=== PATIENT | male | born 1955 ===

== ENCOUNTER 2017-03-07 18:21 | Emergency (ER) | payer SELFPAY ==
[2017-03-07 18:21] VITALS: BMI 26.8
[2017-03-07 18:44] VITALS: RESP 20; O2SAT 100
[2017-03-07] MEDS ORDERED: Naproxen 550 mg Tab PO STA (20:08)
[2017-03-07] MEDS ORDERED: Naproxen 550 mg Tab PO ONE (20:20)
--- NOTE | 2017-03-07 20:42 | C.PDOC ---
History Of Present Illness 61yo male presents to the ED for evaluation of 2 weeks of right foot pain radiating to his right leg and right buttock area. He denies any trauma, injuries, numbness, bowel or bladder dysfunction. He also denies any back pain. Patient reports taking Motrin with relief. He states he had similar symptoms in his left calf 6 months ago which spontaneously resolved. Patient also states he had a medical check up with his PMD 6 months ago which was all normal. He denies any fever, chill, nausea, vomiting, abdominal pain. He offers no other medical complaints. Time Seen by Provider: 03/07/17 19:24 Chief Complaint (Nursing): Lower Extremity Problem/Injury History Per: Patient History/Exam Limitations: no limitations Onset/Duration Of Symptoms: Days, Persistent Current Symptoms Are (Timing): Still Present Past Medical History Reviewed: Historical Data, Nursing Documentation, Vital Signs Vital Signs: Last Vital Signs Temp 98 F 03/07/17 22:25 Pulse 78 03/07/17 22:25 Resp 20 03/07/17 22:25 BP 130/70 03/07/17 22:25 Pulse Ox 100 03/07/17 22:25 - Medical History PMH: No Chronic Diseases Surgical History: No Surg Hx Family History: States: Unknown Family Hx - Social History Hx Tobacco Use: No Hx Alcohol Use: No Hx Substance Use: No - Immunization History Hx Tetanus Toxoid Vaccination: Yes Hx Influenza Vaccination: Yes Hx Pneumococcal Vaccination: No Review Of Systems Except As Marked, All Systems Reviewed And Found Negative. Constitutional: Negative for: Fever, Chills Cardiovascular: Negative for: Chest Pain, Palpitations, Orthopnea Respiratory: Negative for: Cough, Shortness of Breath Gastrointestinal: Negative for: Nausea, Vomiting, Abdominal Pain Musculoskeletal: Positive for: Leg Pain (right), Foot Pain (right). Negative for: Neck Pain, Shoulder Pain, Back Pain Skin: Negative for: Rash, Lesions Neurological: Negative for: Weakness, Numbness, Incoordination Physical Exam - Physical Exam Appears: Well, Non-toxic, No Acute Distress Skin: Normal Color, Warm, Dry Head: Atraumatic, Normacephalic Eye(s): bilateral: PERRL, EOMI Ear(s): Bilateral: Normal Neck: Normal, Normal ROM, Supple Chest: No Deformity, No Tenderness Cardiovascular: Rhythm Regular Respiratory: Normal Breath Sounds Gastrointestinal/Abdominal: Normal Exam, Soft, No Tenderness Back: No Normal Inspection, No CVA Tenderness, No Vertebral Tenderness, No Paraspinal Tenderness Extremity: Normal ROM, No Tenderness, No Pedal Edema, Capillary Refill (< 2 seconds), No Deformity, No Swelling Neurological/Psych: Oriented x3, Normal Speech, Normal Cognition, Normal Cranial Nerves, Normal Motor, Normal Sensation, Other (walks with a normal gait) ED Course And Treatment O2 Sat by Pulse Oximetry: 100 (RA) Pulse Ox Interpretation: Normal Medical Decision Making Medical Decision Making: Impression: 61yo male w/ right lower extremity pain, consider sciatica vs claudication vs neuropathy Plan: -- XR right hip -- XR right femur -- XR right foot -- XR right knee XR R hip / pelvis: (-) fracture, (-) dislocation, as read by PA. XR R femur: (-) fracture, (-) dislocation, as read by PA. XR R knee: (-) fracture, (-) dislocation, as read by PA. XR R foot: (-) fracture, (-) dislocation, as read by PA. XR results d/w the patient in great detail. Advised of the need for ortho f/u without fail in the next 2-3 days for further evaluation. Advised to take medication as prescribed. Disposition Counseled Patient/Family Regarding: Studies Performed, Diagnosis, Need For Followup, Rx Given - Disposition Referrals: Oralia Lund MD [Staff Provider] - Disposition: HOME/ ROUTINE Disposition Time: 22:00 Condition: STABLE Additional Instructions: Follow up with orthopedic referral provided in 2 days without fail. Take medication as prescribed. Return to the ER at any time for any new or worsening symptoms. 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 - Scribe Statement The provider has reviewed the documentation as recorded by the Monty Jones Provider Attestation: All medical record entries made by the Monty were at my direction and personally dictated by me. I have reviewed the chart and agree that the record accurately reflects my personal performance of the history, physical exam, medical decision making, and the department course for this patient. I have also personally directed, reviewed, and agree with the discharge instructions and disposition.
[2017-03-07 22:26] VITALS: BP 130/70; PULSE 78; TEMP 98
--- NOTE | 2017-03-08 15:37 | RAD ---
Right knee three views History: Pain. Comparison: None available. Findings: Mild medial and patellofemoral compartment joint space narrowing. No evidence of acute displaced fracture or dislocation. Small suprapatellar joint effusion. If pain persists, consider MRI. Impression: Mild medial and patellofemoral compartment joint space narrowing. No evidence of acute displaced fracture or dislocation. Small suprapatellar joint effusion. If pain persists, consider MRI.
--- NOTE | 2017-03-08 15:46 | RAD ---
Left knee three views History: Pain. Comparison: None available. Findings: Mild medial compartment joint space narrowing. Small suprapatellar joint effusion. No evidence of acute displaced fracture or dislocation. Impression: Small suprapatellar joint effusion. Degenerative changes. If pain persists, consider MRI.
--- NOTE | 2017-03-08 15:49 | RAD ---
Left foot three views History: Pain. Comparison: None available. Findings: Moderate hallux valgus deformity. Small ossific density seen medial to the head of the 1st metatarsal bone which may represent accessory ossicle versus small avulsion injury. Clinical correlation to site of pain. Clinical correlation. Peripheral erosion at the 1st metatarsal head. Small bone island in the mid calcaneus. Narrowing of the tibiotalar joint space. Impression: Moderate hallux valgus deformity. Small ossific density seen medial to the head of the 1st metatarsal bone which may represent accessory ossicle versus small avulsion injury. Clinical correlation to site of pain. Clinical correlation. Peripheral erosion at the 1st metatarsal head. Small bone island in the mid calcaneus. Narrowing of the tibiotalar joint space. If pain persists, consider MRI.
--- NOTE | 2017-03-08 16:06 | RAD ---
Pelvis and right hip two views History: Injury. Comparison: None available. Findings: Right hip: Moderate degenerative changes with joint space narrowing and subchondral sclerosis. No evidence for acute displaced fracture or dislocation. Degenerative changes in the lower lumbar spine with paravertebral osteophytes. Left hip: Moderate degenerative changes in the left hip with joint space narrowing and associated osteophytosis. Osteitis pubis. Impression: Degenerative changes. If pain persists, consider MRI.
--- NOTE | 2017-03-08 16:20 | RAD ---
PROCEDURE: Right Foot Radiographs. HISTORY: Pain COMPARISON: None. FINDINGS: BONES: There is no acute displaced fracture or bone destruction. Bone alignment and mineralization are normal. JOINTS: Normal. SOFT TISSUES: Normal. OTHER FINDINGS: None. IMPRESSION: No acute fracture or dislocation.
--- NOTE | 2017-03-08 16:22 | RAD ---
PROCEDURE: Right Femur Radiographs. HISTORY: Pain COMPARISON: None. TECHNIQUE: AP and Lateral Radiographs of the right femur. FINDINGS: FEMUR: There is no acute displaced fracture or bone destruction. Bone alignment and mineralization are normal. SOFT TISSUES: Normal. OTHER FINDINGS: None. IMPRESSION: No acute fracture or bone destruction.
== END 2017-03-07 22:26 | disposition home or self-care (01) ==
LOC: C.ER 18:21
DX: M79.604 Pain in right leg (principal)

== ENCOUNTER 2017-12-06 10:20 | Observation (INO) | payer MEDICAID, OTHER, SELFPAY ==
[2017-12-06 10:21] VITALS: BMI 26.8
--- NOTE | 2017-12-06 11:00 | C.PDOC ---
History Of Present Illness 62-year-old male presents to the ER with complaints of intermittent dizziness for the past 3 months. He describes dizziness as the room spinning around him. Also in the last week patient reports having 3 episodes of left upper extremity weakness, most recently today around 9am. Otherwise patient denies any chest pain, SOB, visual changes, facial droop, slurred speech, sensory changes, headache, or palpitations. Time Seen by Provider: 12/06/17 10:41 Chief Complaint (Nursing): Dizziness/Lightheaded History Per: Patient History/Exam Limitations: no limitations Onset/Duration Of Symptoms: Intermittent Episodes Current Symptoms Are (Timing): Still Present Past Medical History Reviewed: Historical Data, Nursing Documentation, Vital Signs Vital Signs: Last Vital Signs Temp 98.9 F 12/06/17 10:33 Pulse 90 12/06/17 10:33 Resp 18 12/06/17 10:33 BP 135/76 12/06/17 10:33 Pulse Ox 98 12/06/17 12:35 - Medical History PMH: No Chronic Diseases Surgical History: No Surg Hx Family History: States: Unknown Family Hx - Social History Hx Tobacco Use: No Hx Alcohol Use: No Hx Substance Use: No - Immunization History Hx Tetanus Toxoid Vaccination: Yes Hx Influenza Vaccination: Yes Hx Pneumococcal Vaccination: No Review Of Systems Except As Marked, All Systems Reviewed And Found Negative. Eyes: Negative for: Vision Change Cardiovascular: Negative for: Chest Pain, Palpitations Respiratory: Negative for: Shortness of Breath Neurological: Positive for: Weakness (LUE), Dizziness. Negative for: Numbness, Change in Speech, Headache, Other (facial droop) Physical Exam - Physical Exam Appears: Non-toxic, No Acute Distress, Other (Appears comfortable) Skin: Normal Color, Warm, Dry Head: Atraumatic, Normacephalic Eye(s): bilateral: Normal Inspection (with no nystagmus), PERRL, EOMI Nose: Normal Oral Mucosa: Moist Neck: Normal ROM, Supple Chest: Symmetrical, No Deformity Cardiovascular: Rhythm Regular, No Murmur Respiratory: Normal Breath Sounds, No Rales, No Rhonchi, No Wheezing Gastrointestinal/Abdominal: Soft, No Tenderness Back: Normal Inspection Extremity: Bilateral: Atraumatic, Normal Color And Temperature, Normal ROM Pulses: Left Radial: Normal, Right Radial: Normal Neurological/Psych: Oriented x3, Normal Speech, Normal Cranial Nerves (CN 2-12 intact), Normal Motor (5/5 motor strength of all extremities), Normal Sensation , Other (No focal deficits) Gait: Steady ED Course And Treatment - Laboratory Results Result Diagrams: 12/06/17 11:14 12/06/17 11:14 ECG: Interpreted By Me, Viewed By Me ECG Rhythm: Sinus Rhythm Interpretation Of ECG: left axis deviation, no acute ST/T wave changes Rate From EC O2 Sat by Pulse Oximetry: 98 (RA) Pulse Ox Interpretation: Normal - CT Scan/US CT HEAD Other Rad Studies (CT/US): Read By Radiologist, Radiology Report Reviewed CT/US Interpretation: Accession No. : [id number]. Patient Name / ID : LENI BOOTH / [id number]. Exam Date : 12/06/2017 11:42:52 ( Approved ). Study Comment : Sex / Age : M / 62Y. Creator : Milena Bruce. Dictator : Latha Goldberg MD. Shelter Monitor : Finance Advisor : Latha Goldberg MD. Approver2 : Report Date : 12/06/2017 11:57:45. My Comment : . Date of service: 12/06/2017. PROCEDURE: CT HEAD WITHOUT CONTRAST. HISTORY: Dizziness and left arm weakness. COMPARISON: None available. TECHNIQUE: Axial computed tomography images were obtained through the head/brain without intravenous contrast. Radiation dose: Total exam DLP = 1077.95 mGy-cm. This CT exam was performed using one or more of the following dose reduction techniques: Automated exposure control, adjustment of the mA and/or kV according to patient size, and/or use of iterative reconstruction technique. FINDINGS: HEMORRHAGE: No intracranial hemorrhage. BRAIN: Freitas-white matter differentiation is preserved. There is no mass, mass effect or abnormal extra- axial fluid collection. There is no territorial infarction. The midline sagittal structures are normal. VENTRICLES: The ventricles are normal in size , shape and configuration. CALVARIUM: The skull base and calvarium are normal. PARANASAL SINUSES: Predominantly clear. MASTOID AIR CELLS: Predominantly clear. OTHER FINDINGS: None. IMPRESSION: No acute intracranial abnormality. If there is a persistent focal neurologic deficit and an ongoing clinical concern for acute infarction, an MRI of the brain without intravenous contrast would be a more sensitive modality for evaluation of hyperacute/acute ischemic infarction. Progress Note: Labs and CT Head ordered. Patient started on IV fluids. NIHSS Stroke Scale 2 - Date/Time Evaluation Performed Date Performed: 12/06/17 Time Performed: 10:35 When Was NIHSS Performed: Baseline - How Severe is the Stroke Level of Consciousness: 0=Alert LOC to Questions: 0=Both comments correct LOC to commands: 0=Obeys both correctly Best Gaze: 0=Normal Visual: 0=No visual loss Facial: 0=Normal Motor Arm - Left: 0=No drift Motor Arm - Right: 0=No drift Motor Leg - Left: 0=No drift Motor Leg - Right: 0=No drift Limb Ataxia: 0=Absent Sensory: 0=Normal Best Language: 0=No aphasia Dysarthia: 0=Normal articulation Extinction & Inattention (Neglect): 0=Normal, no object Score: 0 Severity Of Stroke: 0 = No Stroke rTPA Inclusion/Exclusion - Refusal of Treatment Patient Refused Treatment: No - Inclusion Criteria for Altepase Patient is 18 years or Older: Yes The Clinical Diagnosis of Ischemic Stroke That is Causing a Potentially Disabling Neurological Deficit: No Time of Onset is Well Established to be Less Than 270 Minute Before Treatment Would Begin: Yes Risk/Benefit Discussed With Patient/Family Member Present: No Disposition - Disposition Forms: [employer] (Azeri) - Scribe Statement The provider has reviewed the documentation as recorded by the Monty Ocasio Provider Attestation: All medical record entries made by the Monty were at my direction and personally dictated by me. I have reviewed the chart and agree that the record accurately reflects my personal performance of the history, physical exam, medical decision making, and the department course for this patient. I have also personally directed, reviewed, and agree with the discharge instructions and disposition.
[2017-12-06] MEDS ORDERED: Sodium Chloride 0.9% 500 ML IV ONE ×2 (11:10→11:42)
[2017-12-06 11:19] LABS: BASO % 0.6 % (0.0-2.0); EOS % 0.8 % (0.0-4.0); LYMPH % 33.2 % (20.0-40.0); MEAN CELL VOLUME 90.9 fL (80.0-94.0); MEAN CORPUSCULAR HEMOGLOBIN 30.5 pg (27.0-31.0); MEAN CORPUSCULAR HGB CONC 33.6 g/dL (33.0-37.0); MEAN PLATELET VOLUME 8.9 fL (7.2-11.7); MONO # 0.5 K/uL (0.0-0.8); MONO % 7.9 % (0.0-10.0); NEUT # 3.5 K/uL (1.8-7.0); NEUT % 57.5 % (50.0-75.0); NRBC % 0.1 % (0.0-2.0); RBC 4.91 Mil/uL (4.40-5.90); RED CELL DISTRIBUTION WIDTH 12.7 % (11.5-14.5); WHITE BLOOD COUNT 6.1 K/uL (4.8-10.8)
[2017-12-06 11:24] LABS: PROTHROMBIN TIME 11.1 SECONDS (9.7-12.2)
[2017-12-06 11:29] LABS: ALB/GLOB RATIO 1.4 (1.0-2.1); ALBUMIN 4.2 g/dL (3.5-5.0); ALT/SGPT 42 U/L (21-72); AST/SGOT 20 U/L (17-59); BLOOD UREA NITROGEN 14 mg/dL (9-20); CALCIUM 9.4 mg/dl (8.6-10.4); GFR AFRICAN-AMERICAN > 60; GFR NON-AFRICAN AMERICAN > 60
[2017-12-06 11:40] LABS: URINE BILIRUBIN NEGATIVE (NEGATIVE); URINE BLOOD NEGATIVE (NEGATIVE); URINE CLARITY Clear (Clear); URINE COLOR Colorless (YELLOW); URINE GLUCOSE (UA) NORMAL (Normal); URINE LEUKOCYTE ESTERASE NEG Leu/uL (Negative); URINE PROTEIN NEGATIVE (NEGATIVE); URINE UROBILINOGEN NORMAL mg/dL (0.2-1.0)
[2017-12-06 11:41] LABS: CK-MB 8.39 ng/mL (0.0-3.38)
--- NOTE | 2017-12-06 12:17 | CT ---
Date of service: 12/06/2017 PROCEDURE: CT HEAD WITHOUT CONTRAST. HISTORY: Dizziness and left arm weakness COMPARISON: None available. TECHNIQUE: Axial computed tomography images were obtained through the head/brain without intravenous contrast. Radiation dose: Total exam DLP = 1077.95 mGy-cm. This CT exam was performed using one or more of the following dose reduction techniques: Automated exposure control, adjustment of the mA and/or kV according to patient size, and/or use of iterative reconstruction technique. FINDINGS: HEMORRHAGE: No intracranial hemorrhage. BRAIN: Freitas-white matter differentiation is preserved. There is no mass, mass effect or abnormal extra-axial fluid collection. There is no territorial infarction. The midline sagittal structures are normal. VENTRICLES: The ventricles are normal in size, shape and configuration. CALVARIUM: The skull base and calvarium are normal. PARANASAL SINUSES: Predominantly clear. MASTOID AIR CELLS: Predominantly clear. OTHER FINDINGS: None. IMPRESSION: No acute intracranial abnormality. If there is a persistent focal neurologic deficit and an ongoing clinical concern for acute infarction, an MRI of the brain without intravenous contrast would be a more sensitive modality for evaluation of hyperacute/acute ischemic infarction.
--- NOTE | 2017-12-06 13:25 | RAD ---
Date of service: 12/06/2017 PROCEDURE: CHEST RADIOGRAPH, 1 VIEW HISTORY: Dizziness COMPARISON: None available. FINDINGS: LUNGS: Clear. PLEURA: No pneumothorax or pleural fluid seen. CARDIOVASCULAR: Atherosclerotic aortic calcifications. Cardiomediastinal silhouette within normal limits. OSSEOUS STRUCTURES: Degenerative changes. VISUALIZED UPPER ABDOMEN: Normal. OTHER FINDINGS: None. IMPRESSION: No active disease.
[2017-12-06 13:57] LABS: BARBITURATES, UR NEGATIVE (NEGATIVE); BENZODIAZEPINES, UR NEGATIVE (NEGATIVE); OPIATES, UR NEGATIVE (NEGATIVE); PHENCYCLIDINE, UR NEGATIVE (NEGATIVE)
--- NOTE | 2017-12-06 14:39 | CP.PCM.HP ---
History of Present Illness - History of Present Illness History of Present Illness: PGY-[address] Bal Loyola. HPI: 62 year old male with PMHx of seasonal allergies and vertigo presents to ED for L arm weakness and numbness that began 15 minutes prior to arrival while at rest. L arm weakness improved spontaneously after 15-20 minutes, however patient reports mild persistent numbness. Patient states he had a similar episode one week ago, where he awoke with the same symptoms in the middle of the night. Patient states he was not sleeping on his L side when symptoms occurred. Prior to these 2 episodes, this has never happened before. States he becomes dizzy (room spinning sensation) with these episodes, which worsens with movement. He also reports intermittent L leg weakness for the past week (feels like leg will give out on him) and bilateral leg pain for past few months. Denies current fever, chills, change in vision/hearing, slurred speech, saddle anesthesia, loss of bladder or bowel control, sore throat, shortness of breath, cough, abdominal pain, nausea, vomiting, hematemesis, diarrhea, constipation, hematochezia, dysuria, urinary frequency, back pain, and rash. PMD: Dr. Kirkland PMHx: vertigo PSHx: none Meds: Loratadine 20 mg PRN, OTC decongestant nasal spray PRN, Meclizine 25mg Q8H PRN (started taking 2 years ago-at first took as directed, but due to drowsiness now takes half a tablet anywhere from once a week to multiple times a day for consecutive days. last took 3 days ago) Allergies:NKDA; + seasonal allergies. Food allergies: almond, avocado, soy, apples. Family Hx: Mother: HTN and "heart problem". Father: unkown. Denies known family history of CVA. Social Hx:Former smoker- 6 cigarettes a day for 30 years, quit 10 years ago. Drinks alcohol socially, 1-2 times per month. denies illicit drug use. 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 Code Status: full code. Proxy: , Zunilda Jameson . Present on Admission - Present on Admission Any Indicators Present on Admission: No Review of Systems - Constitutional Constitutional: Chills, Headache, Weight Loss. absent: Excessive Sweating, Fever, Malaise - EENT Eyes: Sees Flashes. absent: Blurred Vision, Irritation, Itchy Eyes Ears: Tinnitus, Dizziness. absent: Decreased Hearing, Ear Discharge, Ear Pain Nose/Mouth/Throat: Dry Mouth, Mouth Pain. absent: Dysphagia - Cardiovascular Cardiovascular: Lightheadedness. absent: Irregular Heart Rhythm, Leg Edema, Palpitations, Paroxysmal Nocturnal Dyspnea - Respiratory Respiratory: absent: Cough, Wheezing, Pain on Inspiration, Chest Congestion - Gastrointestinal Gastrointestinal: absent: Abdominal Pain - Genitourinary Genitourinary: absent: Urinary Incontinence, Urinary Frequency - Musculoskeletal Musculoskeletal: Muscle Weakness, Numbness. absent: Joint Swelling - Integumentary Integumentary: absent: Rash - Neurological Neurological: Dizziness, Numbness, Headaches, Vertigo. absent: Abnormal Speech , Confusion, Loss of Vision Past Patient History - Past Medical History & Family History Pertinent Family History: Mother: HTN and "heart problem" - PSYCHIATRIC Hx Substance Use: No - SURGICAL HISTORY Hx Surgeries: No - ANESTHESIA Hx Anesthesia: No Meds Allergies/Adverse Reactions: Allergies Allergy/AdvReac Type Severity Reaction Status Date / Time No Known Allergies Allergy Verified 02/11/15 11:12 Physical Exam - Constitutional Appears: No Acute Distress - Head Exam Head Exam: ATRAUMATIC, NORMAL INSPECTION, NORMOCEPHALIC - Eye Exam Eye Exam: EOMI, Normal appearance. absent: Nystagmus, Scleral icterus Pupil Exam: NORMAL ACCOMODATION, PERRL - ENT Exam ENT Exam: Mucous Membranes Moist, Normal Exam, Normal Oropharynx, TM's Normal Bilaterally - Neck Exam Neck exam: Positive for: Full Rom, Lymphadenopathy, Normal Inspection - Respiratory Exam Respiratory Exam: Clear to Auscultation Bilateral, NORMAL BREATHING PATTERN. absent: Accessory Muscle Use, Rales, Rhonchi, Wheezes, Respiratory Distress - Cardiovascular Exam Cardiovascular Exam: REGULAR RHYTHM, +S1, +S2. absent: +S4, Systolic Murmur - GI/Abdominal Exam GI & Abdominal Exam: Normal Bowel Sounds, Soft. absent: Guarding, Rebound, Tenderness - Extremities Exam Extremities exam: Positive for: full ROM, normal inspection, pedal pulses present. Negative for: calf tenderness, pedal edema, tenderness Additional comments: no cyanosis, discoloration, swelling, erythema, no definite cord palpated. - Neurological Exam Neurological exam: Alert, CN II-XII Intact, Oriented x3 - Psychiatric Exam Psychiatric exam: Normal Affect, Normal Mood - Skin Skin Exam: Dry, Intact, Normal Color, Warm Results - Vital Signs Recent Vital Signs: Last Vital Signs Temp 98.7 F 12/06/17 13:42 Pulse 90 12/06/17 10:33 Resp 18 12/06/17 10:33 BP 135/76 12/06/17 10:33 Pulse Ox 98 12/06/17 12:43 - Labs Result Diagrams: 12/06/17 11:14 12/06/17 11:14 Labs: Laboratory Results - last 24 hr 12/06/17 12/06/17 12/06/17 10:48 11:14 11:14 WBC 6.1 RBC 4.91 Hgb 15.0 Hct 44.6 MCV 90.9 MCH 30.5 MCHC 33.6 RDW 12.7 Plt Count 232 MPV 8.9 Neut % (Auto) 57.5 Lymph % (Auto) 33.2 [place] % (Auto) 7.9 Eos % (Auto) 0.8 Baso % (Auto) 0.6 Neut # (Auto) 3.5 Lymph # (Auto) 2.0 [place] # (Auto) 0.5 Eos # (Auto) 0.0 Baso # (Auto) 0.0 PT INR APTT Sodium 142 Potassium 4.1 Chloride 102 Carbon Dioxide 29 Anion Gap 15 BUN 14 Creatinine 0.8 Est GFR ( Amer) > 60 Est GFR (Non-Af Amer) > 60 POC Glucose (mg/dL) 115 H Random Glucose 113 H Calcium 9.4 Total Bilirubin 0.5 AST 20 ALT 42 Alkaline Phosphatase 54 Total Creatine Kinase 459 H CK-MB (Mass) 8.39 H Troponin I < 0.0120 Total Protein 7.3 Albumin 4.2 Globulin 3.0 Albumin/Globulin Ratio 1.4 Urine Color Urine Clarity Urine pH Ur Specific [place] Urine Protein Urine Glucose (UA) Urine Ketones Urine Blood Urine Nitrate Urine Bilirubin Urine Urobilinogen Ur Leukocyte Esterase Urine Opiates Screen Urine Methadone Screen Ur Barbiturates Screen Ur Phencyclidine Scrn Ur Amphetamines Screen U Benzodiazepines Scrn U Oth Cocaine Metabols U Cannabinoids Screen 12/06/17 12/06/17 12/06/17 11:14 11:34 13:26 WBC RBC Hgb Hct MCV MCH MCHC RDW Plt Count MPV Neut % (Auto) Lymph % (Auto) [place] % (Auto) Eos % (Auto) Baso % (Auto) Neut # (Auto) Lymph # (Auto) [place] # (Auto) Eos # (Auto) Baso # (Auto) PT 11.1 INR 1.0 APTT 30 Sodium Potassium Chloride Carbon Dioxide Anion Gap BUN Creatinine Est GFR ( Amer) Est GFR (Non-Af Amer) POC Glucose (mg/dL) Random Glucose Calcium Total Bilirubin AST ALT Alkaline Phosphatase Total Creatine Kinase CK-MB (Mass) Troponin I Total Protein Albumin Globulin Albumin/Globulin Ratio Urine Color Colorless Urine Clarity Clear Urine pH 7.0 Ur Specific [place] 1.001 L Urine Protein Negative Urine Glucose (UA) Normal Urine Ketones Negative Urine Blood Negative Urine Nitrate Negative Urine Bilirubin Negative Urine Urobilinogen Normal Ur Leukocyte Esterase Neg Urine Opiates Screen Negative Urine Methadone Screen Negative Ur Barbiturates Screen Negative Ur Phencyclidine Scrn Negative Ur Amphetamines Screen Negative U Benzodiazepines Scrn Negative U Oth Cocaine Metabols Negative U Cannabinoids Screen Negative Assessment & Plan - Assessment and Plan (Free Text) Plan: Possible TIA -CT head (12/06/17): no acute intracranial hemorrage. -MRI brain (12/06/17): No acute infarction. Mild chronic microangiopathic changes and mild age related flobal parenchymal volume loss. 1.3 x0.7 cm focal enhancement in the left superior cerebellar hemisphere on a single axial image with no correlating enhancement in the sagital or coronal planes is likely artifactual from arterial pulsation. However clinical correlation is recommended and if clinically indicated short-term interval follow-up may be performed to reassess this finding. -CT angio head and neck: f/u -CXR: No active disease -2D echo: f/u -Neurology consult, Dr. Mccoy, help appreciated. -TOVA x3 and EKG: -Lipid panel -Hgb A1c Dizziness -secondary to meclizine use? -Hold Meclizine Leg pain -Bilateral lower extremity doppler Elevated CK/CKMB -IVF -Repeat in AM Prophylactic measures -Heparin 5000u SC Q12H -SCDs -GI prophylaxis not indicated - Date & Time Date: 12/06/17 Time: 13:30
[2017-12-06] MEDS ORDERED: Gadodiamide 287 mg/ml 20 ml IV ONE (14:45)
--- NOTE | 2017-12-06 15:19 | MRI ---
Date of service: 12/06/2017 PROCEDURE: MRI BRAIN WITH AND WITHOUT CONTRAST HISTORY: Headache dizziness, left-sided weakness COMPARISON: Noncontrast CT performed earlier the same day. TECHNIQUE: Multiplanar, multisequence MR images of the brain were obtained with and without intravenous contrast enhancement. 13 mL Omniscan was injected intravenously. Noncontrast head FINDINGS: HEMORRHAGE: None DWI: No evidence of an acute or early subacute infarction. BRAIN PARENCHYMA: There are mild chronic microangiopathic changes. There is no mass, mass effect or abnormal extra-axial fluid collection. There is no territorial infarction. ENHANCEMENT: There is a 1.3 by 0.7 cm focal enhancement in the left superior cerebellar hemisphere seen only on 1 axial image with no collaborating enhancement in the sagittal and coronal images. (series 12, image 22) with no corresponding T1 or T2/FLAIR signal abnormality. There is no corresponding restricted diffusion. VENTRICLES: There is mild age-related global parenchymal volume loss and proportionate enlargement of the ventricles and cortical sulci. CRANIUM: There is normal bone marrow signal pattern. ORBITS: Grossly unremarkable. PARANASAL SINUSES/MASTOIDS: Clear VASCULAR SYSTEM: Skull base flow voids intact. OTHER FINDINGS: None . IMPRESSION: 1. No acute infarction. 2. Mild chronic microangiopathic changes and mild age-related global parenchymal volume loss. 3. 1.3 x 0.7 cm focal enhancement in the left superior cerebellar hemisphere on a single axial image with no correlating enhancement in the sagittal or coronal planes is likely artifactual from arterial pulsation. However clinical correlation is recommended and if clinically indicated short-term interval follow-up may be performed to reassess this finding.
[2017-12-06] MEDS ORDERED: Iodixanol 320 mg/ml 150 ml Bottle IV ONE (18:57)
[2017-12-06 20:49] LABS: RAPID PLASMA REAGIN REACTIVE (NONREACTIVE)
[2017-12-06] MEDS: Sodium Chloride 0.9% 1,000 ML IV SCH (21:06)
[2017-12-06 21:24] LABS: FOLATE 16.3 ng/mL
[2017-12-07] MEDS: Sodium Chloride 0.9% 1,000 ML IV SCH (06:50)
[2017-12-07 07:12] LABS: ALB/GLOB RATIO 1.5 (1.0-2.1); ALBUMIN 3.7 g/dL (3.5-5.0); ALT/SGPT 39 U/L (21-72); AST/SGOT 23 U/L (17-59); BLOOD UREA NITROGEN 13 mg/dL (9-20); CALCIUM 9.1 mg/dl (8.6-10.4); GFR AFRICAN-AMERICAN > 60; GFR NON-AFRICAN AMERICAN > 60; HDL CHOLESTEROL 54 mg/dL (30-70)
[2017-12-07 07:22] LABS: BASO % 0.5 % (0.0-2.0); EOS # 0.1 K/uL (0.0-0.7); EOS % 2.1 % (0.0-4.0); HEMOGLOBIN 13.8 g/dL (12.0-18.0); LYMPH # 2.2 K/uL (1.0-4.3); LYMPH % 35.5 % (20.0-40.0); MEAN CELL VOLUME 91.8 fL (80.0-94.0); MEAN CORPUSCULAR HEMOGLOBIN 30.8 pg (27.0-31.0); MEAN CORPUSCULAR HGB CONC 33.6 g/dL (33.0-37.0); MEAN PLATELET VOLUME 9.7 fL (7.2-11.7); MONO # 0.4 K/uL (0.0-0.8); MONO % 7.2 % (0.0-10.0); NEUT # 3.4 K/uL (1.8-7.0); NEUT % 54.7 % (50.0-75.0); NRBC % 0.1 % (0.0-2.0); RBC 4.49 Mil/uL (4.40-5.90); WHITE BLOOD COUNT 6.1 K/uL (4.8-10.8)
[2017-12-07 07:23] LABS: LDL CHOLESTEROL 94 mg/dL (0-129)
[2017-12-07 07:25] LABS: CK-MB 9.37 ng/mL (0.0-3.38)
--- NOTE | 2017-12-07 09:39 | CP.PCM.PN ---
Subjective - Date & Time of Evaluation Date of Evaluation: 12/07/17 Time of Evaluation: 09:39 - Subjective Subjective: PGY-1 Objective - Vital Signs/Intake and Output Vital Signs (last 24 hours): Temp Pulse Resp BP Pulse Ox 98.3 F 60 20 106/64 100 12/07/17 07:10 12/07/17 07:10 12/07/17 07:10 12/07/17 07:10 12/07/17 07:10 - Medications Medications: Current Medications Heparin Sodium (Porcine) (Heparin) 5,000 units SC Q12 [facility] Last Admin: 12/06/17 21:22 Dose: 5,000 units Sodium Chloride (Sodium Chloride 0.9%) 1,000 mls @ 110 mls/hr IV .Q9H6M [facility] Last Admin: 12/07/17 06:50 Dose: 110 mls/hr Pneumococcal Polyvalent Vaccine (Pneumovax 23 Vaccine) 0.5 ml IM .ONCE ONE Stop: 12/07/17 10:01 - Labs Labs: 12/07/17 06:37 12/07/17 06:37 PT 11.1 SECONDS (9.7-12.2) 12/06/17 11:14 INR 1.0 12/06/17 11:14 APTT 30 SECONDS (21-34) 12/06/17 11:14 Assessment and Plan - Assessment and Plan (Free Text) Plan: Possible TIA -CT head (12/06/17): no acute intracranial hemorrage. -MRI brain (12/06/17): No acute infarction. Mild chronic microangiopathic changes and mild age related flobal parenchymal volume loss. 1.3 x0.7 cm focal enhancement in the left superior cerebellar hemisphere on a single axial image with no correlating enhancement in the sagital or coronal planes is likely artifactual from arterial pulsation. However clinical correlation is recommended and if clinically indicated short-term interval follow-up may be performed to reassess this finding. -CT angio head and neck: No occlusion, stenosis, aneurysm. Carotis with mild calcified plaque. (see full report) -CXR: No active disease -2D echo: f/u -Neurology consult, Dr. Mccoy, help appreciated. -1. Patient may be discharged home, and follow up with Dr. Santillan 2. Lead, arsenic, gold, and neuropathy workup. This can be done on an outpatient basis. -TOVA: negative x3 -EKG: NSR at 82 bpm with L axis deviation -Lipid panel: TG 56, chl 175, LDL 94, HDL 54 -Hgb A1c: 5.5 Dizziness -secondary to meclizine use? -Hold Meclizine Leg pain -Bilateral lower extremity doppler Elevated CK/CKMB -IVF -Repeat in AM Prophylactic measures -Heparin 5000u SC Q12H -SCDs -GI prophylaxis not indicated
[2017-12-07] MEDS ORDERED: Pneumococcal 23-Valent Vaccine IM ONE (10:00)
--- NOTE | 2017-12-07 11:50 | CT ---
Date of service: 12/06/2017 PROCEDURE: CT Angiography of the neck with contrast HISTORY: Left arm weakness and numbness COMPARISON: Comparison made with MRI and CT scan brain both dated 12/06/2017 TECHNIQUE: Contiguous axial images of the neck were obtained in standard fashion during arteriographic phase of enhancement. Coronal and sagittal reformats or also generated. IV contrast dose: 100 cc Visipaque 320 Radiation Dose - DLP: 625.[address] mGy-cm This CT exam was performed using one or more of the following dose reduction techniques: Automated exposure control, adjustment of the mA and/or kV according to patient size, and/or use of iterative reconstruction technique. FINDINGS: Minor partially calcified atherosclerotic plaque seen along the left lateral inferomedial aspect proximal descending thoracic aorta. Origins of the great vessels widely patent. Common origin right brachiocephalic and left common carotid artery. RIGHT CAROTID ARTERIES: Common Carotid Artery: Normal. Carotid Bifurcation: Normal. Internal Carotid Artery:Normal. External Carotid Artery (proximal branches): Normal. LEFT CAROTID ARTERIES: Common Carotid Artery: Normal. Carotid Bifurcation: Normal. Internal Carotid Artery:Normal. External Carotid Artery (proximal branches): Normal. VERTEBRAL ARTERIES: Mild asymmetry of the vertebral arteries right-sided which is larger in caliber/more dominant than the left side. The vertebral arteries are patent throughout. Diminutive appearing P1 segment right posterior cerebral artery with large posterior communicating artery/ origin of the right posterior cerebral artery. OTHER FINDINGS: The distal internal carotid arteries including the petrous cavernous and supraclinoid segments are patent however note made of mild partially calcified atherosclerotic plaque both carotid siphons. No evidence of large aneurysm nor vascular malformation. IMPRESSION: No evidence of occlusion, significant stenosis or aneurysm.
--- NOTE | 2017-12-07 12:30 | CP.PCM.CON ---
History of Present Illness - History of Present Illness History of Present Illness: 62 yr old male with pmh of vertigo who presented to the ER with left arm weakness and numbness that started 15 minutes before arrival and resolved on its own, with similar spell happening one week ago. In addition, he has tremendous amounts of dizziness during these spells that worsens with movement, and also has left leg weakness. Denies current fever, chills, change in vision /hearing, slurred speech, saddle anesthesia, loss of bladder or bowel control, sore throat, shortness of breath, cough, abdominal pain, nausea, vomiting, hematemesis, diarrhea, constipation, hematochezia, dysuria, urinary frequency, back pain, and rash. He has tried meclizine in the past with no success. He denies MVA, trauma, heavy lifting. PMH/PSH: vertigo Allergies: NKDA Family Hx: Mother: HTN and "heart problem". Father: unkown. Denies known family history of CVA. Social Hx:Former smoker- 6 cigarettes a day for 30 years, quit 10 years ago. Drinks alcohol socially, 1-2 times per month. denies illicit drug use. 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 on exam: Normal exam, except for decreased sensation in legs bilaterally. Gait is normal. +2 dtr ul and ll bl. Toes downgoing bl. No clonus. Past Patient History - Infectious Disease Hx of Infectious Diseases: None - Tetanus Immunizations Tetanus Immunization: Unknown - Past Medical History & Family History Past Medical History?: Yes - Past Social History Smoking Status: Former Smoker (less than 10 cigarettes per day for 30 years) Chewing Tobacco Use: No Cigar Use: No Alcohol: Occasional Drugs: Denies - CARDIAC Hx Peripheral Vascular Disease: No - PULMONARY Hx Respiratory Disorders: No Hx Asthma: No Hx Bronchitis: No Hx Chronic Obstructive Pulmonary Disease (COPD): No Hx Emphysema: No Hx Lung Cancer: No Hx Pneumonia: No Hx Pulmonary Edema: No Hx Pulmonary Embolism: No Hx Respiratory Aspiration: No Hx Respiratory Tract Infection: No Hx Sleep Apnea: No Hx Tuberculosis: No - NEUROLOGICAL Hx Neurological Disorder: No Hx Alzheimer's Disease: No HX Cerebrovascular Accident: No - PSYCHIATRIC Hx Substance Use: No - SURGICAL HISTORY Hx Surgeries: No - ANESTHESIA Hx Anesthesia: No Meds Allergies/Adverse Reactions: Allergies Allergy/AdvReac Type Severity Reaction Status Date / Time No Known Allergies Allergy Verified 02/11/15 11:12 - Medications Medications: Current Medications Heparin Sodium (Porcine) (Heparin) 5,000 units SC Q12 [facility] Last Admin: 12/07/17 11:21 Dose: 5,000 units Sodium Chloride (Sodium Chloride 0.9%) 1,000 mls @ 110 mls/hr IV .Q9H6M [facility] Last Admin: 12/07/17 06:50 Dose: 110 mls/hr Results - Vital Signs Recent Vital Signs: Last Vital Signs Temp 98.3 F 12/07/17 07:10 Pulse 60 12/07/17 07:10 Resp 20 12/07/17 07:10 BP 106/64 12/07/17 07:10 Pulse Ox 100 12/07/17 07:10 - Labs Result Diagrams: 12/07/17 06:37 12/07/17 06:37 Labs: Laboratory Results - last 24 hr 12/06/17 12/06/17 12/06/17 13:26 17:08 20:00 WBC RBC Hgb Hct MCV MCH MCHC RDW Plt Count MPV Neut % (Auto) Lymph % (Auto) [place] % (Auto) Eos % (Auto) Baso % (Auto) Neut # (Auto) Lymph # (Auto) [place] # (Auto) Eos # (Auto) Baso # (Auto) Sodium Potassium Chloride Carbon Dioxide Anion Gap BUN Creatinine Est GFR ( Amer) Est GFR (Non-Af Amer) Random Glucose Hemoglobin A1c Calcium Total Bilirubin AST ALT Alkaline Phosphatase Total Creatine Kinase CK-MB (Mass) Troponin I < 0.0120 < 0.0120 Total Protein Albumin Globulin Albumin/Globulin Ratio Triglycerides Cholesterol LDL Cholesterol Direct HDL Cholesterol Vitamin B12 Folate Free T4 TSH 3rd Generation Urine Opiates Screen Negative Urine Methadone Screen Negative Ur Barbiturates Screen Negative Ur Phencyclidine Scrn Negative Ur Amphetamines Screen Negative U Benzodiazepines Scrn Negative U Oth Cocaine Metabols Negative U Cannabinoids Screen Negative RPR Titer RPR 12/06/17 12/06/17 12/06/17 20:00 20:00 21:04 WBC RBC Hgb Hct MCV MCH MCHC RDW Plt Count MPV Neut % (Auto) Lymph % (Auto) [place] % (Auto) Eos % (Auto) Baso % (Auto) Neut # (Auto) Lymph # (Auto) [place] # (Auto) Eos # (Auto) Baso # (Auto) Sodium Potassium Chloride Carbon Dioxide Anion Gap BUN Creatinine Est GFR ( Amer) Est GFR (Non-Af Amer) Random Glucose Hemoglobin A1c Calcium Total Bilirubin AST ALT Alkaline Phosphatase Total Creatine Kinase CK-MB (Mass) Troponin I Total Protein Albumin Globulin Albumin/Globulin Ratio Triglycerides Cholesterol LDL Cholesterol Direct HDL Cholesterol Vitamin B12 650 Folate 16.3 Free T4 0.90 TSH 3rd Generation 1.08 Urine Opiates Screen Urine Methadone Screen Ur Barbiturates Screen Ur Phencyclidine Scrn Ur Amphetamines Screen U Benzodiazepines Scrn U Oth Cocaine Metabols U Cannabinoids Screen RPR Titer 1:2 H RPR Reactive H 12/07/17 12/07/17 12/07/17 06:37 06:37 06:37 WBC 6.1 RBC 4.49 Hgb 13.8 Hct 41.2 MCV 91.8 MCH 30.8 MCHC 33.6 RDW 13.0 Plt Count 188 MPV 9.7 Neut % (Auto) 54.7 Lymph % (Auto) 35.5 [place] % (Auto) 7.2 Eos % (Auto) 2.1 Baso % (Auto) 0.5 Neut # (Auto) 3.4 Lymph # (Auto) 2.2 [place] # (Auto) 0.4 Eos # (Auto) 0.1 Baso # (Auto) 0.0 Sodium 143 Potassium 4.2 Chloride 105 Carbon Dioxide 29 Anion Gap 14 BUN 13 Creatinine 0.8 Est GFR ( Amer) > 60 Est GFR (Non-Af Amer) > 60 Random Glucose 102 Hemoglobin A1c 5.5 Calcium 9.1 Total Bilirubin 0.9 AST 23 ALT 39 Alkaline Phosphatase 49 Total Creatine Kinase 484 H CK-MB (Mass) 9.37 H Troponin I Total Protein 6.2 L Albumin 3.7 Globulin 2.5 Albumin/Globulin Ratio 1.5 Triglycerides 56 Cholesterol 175 LDL Cholesterol Direct 94 HDL Cholesterol 54 Vitamin B12 Folate Free T4 TSH 3rd Generation Urine Opiates Screen Urine Methadone Screen Ur Barbiturates Screen Ur Phencyclidine Scrn Ur Amphetamines Screen U Benzodiazepines Scrn U Oth Cocaine Metabols U Cannabinoids Screen RPR Titer RPR Assessment & Plan - Assessment and Plan (Free Text) Assessment: 62 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 MRI Brain and CTA is normal, with no stroke, or aneurysm. Plan: 1. Patient may be discharged home, and follow up with Dr. Santillan 2. Lead, arsenic, gold, and neuropathy workup. This can be done on an outpatient basis. Dr. hahn
--- NOTE | 2017-12-07 14:35 | VASCLAB ---
Date of service: 12/07/2017 PROCEDURE: Lower Extremity Venous Duplex Exam. HISTORY: Calf pain PRIORS: None. TECHNIQUE: Bilateral common femoral, femoral, popliteal and posterior tibial, peroneal and great saphenous veins were evaluated. Flow was assessed with color Doppler, compressibility, assessment of phasic flow and augmentation response. Report prepared by Augusto Acuña, OLIVIA, RVT FINDINGS: RIGHT: 1. Common Femoral Vein: 1.1. Compressibility - Fully compressible: Thrombus - None : Flow - Phasic: Augmentation -Normal: Reflux - None. 2. Femoral Vein: 2.1. Compressibility - Fully compressible: Thrombus - None : Flow - Phasic: Augmentation -Normal: Reflux - None. 3. Popliteal Vein: 3.1. Compressibility - Fully compressible: Thrombus - None : Flow - Phasic: Augmentation -Normal: Reflux - None. 4. Posterior Tibial Vein: 4.1. Compressibility - Fully compressible: Thrombus - None: Flow - Phasic: Augmentation -Normal: Reflux - None. 5. Peroneal Vein: 5.1. Compressibility - Fully compressible: Thrombus - None: Flow - Phasic: Augmentation -Normal: Reflux - None. 6. Great Saphenous Vein: 6.1. Compressibility - Fully compressible: Thrombus - None: Flow - Phasic: Augmentation - Normal: Reflux - None. LEFT: 1. Common Femoral Vein: 1.1. Compressibility - Fully compressible: Thrombus - None: Flow - Phasic: Augmentation -Normal: Reflux - None. 2. Femoral Vein: 2.1. Compressibility - Fully compressible: Thrombus - None: Flow - Phasic: Augmentation -Normal: Reflux - None. 3. Popliteal Vein: 3.1. Compressibility - Fully compressible: Thrombus - None : Flow - Phasic: Augmentation -Normal: Reflux - None. 4. Posterior Tibial Vein: 4.1. Compressibility - Fully compressible: Thrombus - None: Flow - Phasic: Augmentation -Normal: Reflux - None. 5. Peroneal Vein: 5.1. Compressibility - Fully compressible: Thrombus - None: Flow - Phasic: Augmentation -Normal: Reflux - None. 6. Great Saphenous Vein: 6.1. Compressibility - Fully compressible: Thrombus - None: Flow - Phasic: Augmentation - Normal: Reflux - None. OTHER FINDINGS: Right: None significant. Left: None significant. IMPRESSION: Right: No evidence of deep or superficial vein thrombosis of the right lower extremity. Normal valve function noted of the right side. Left: No evidence of deep or superficial vein thrombosis of the left lower extremity. Normal valve function noted of the left side.
--- NOTE | 2017-12-07 14:56 | CP.PCM.PCO ---
Physician Communication Note - Physician Communication Note Physician Communication Note: Please see above
--- NOTE | 2017-12-07 15:42 | CP.PCM.DIS ---
Provider - Provider Date of Admission: 12/06/17 12:51 Attending physician: David Loyola MD Primary care physician: Dr. Kirkland Consults: Dr. Santillan, neurology. Time Spent in preparation of Discharge (in minutes): 45 Diagnosis - Discharge Diagnosis (1) Numbness and tingling in left arm Status: Acute (2) Weakness of left arm Status: Acute (3) Dizziness Status: Acute Hospital Course - Lab Results Lab Results: Most Recent Lab Values WBC 6.1 K/uL (4.8-10.8) 12/07/17 06:37 RBC 4.49 Mil/uL (4.40-5.90) 12/07/17 06:37 Hgb 13.8 g/dL (12.0-18.0) 12/07/17 06:37 Hct 41.2 % (35.0-51.0) 12/07/17 06:37 MCV 91.8 fL (80.0-94.0) 12/07/17 06:37 MCH 30.8 pg (27.0-31.0) 12/07/17 06:37 MCHC 33.6 g/dL (33.0-37.0) 12/07/17 06:37 RDW 13.0 % (11.5-14.5) 12/07/17 06:37 Plt Count 188 K/uL (130-400) 12/07/17 06:37 MPV 9.7 fL (7.2-11.7) 12/07/17 06:37 Neut % (Auto) 54.7 % (50.0-75.0) 12/07/17 06:37 Lymph % (Auto) 35.5 % (20.0-40.0) 12/07/17 06:37 [place] % (Auto) 7.2 % (0.0-10.0) 12/07/17 06:37 Eos % (Auto) 2.1 % (0.0-4.0) 12/07/17 06:37 Baso % (Auto) 0.5 % (0.0-2.0) 12/07/17 06:37 Neut # (Auto) 3.4 K/uL (1.8-7.0) 12/07/17 06:37 Lymph # (Auto) 2.2 K/uL (1.0-4.3) 12/07/17 06:37 Radford # (Auto) 0.4 K/uL (0.0-0.8) 12/07/17 06:37 Eos # (Auto) 0.1 K/uL (0.0-0.7) 12/07/17 06:37 Baso # (Auto) 0.0 K/uL (0.0-0.2) 12/07/17 06:37 PT 11.1 SECONDS (9.7-12.2) 12/06/17 11:14 INR 1.0 12/06/17 11:14 APTT 30 SECONDS (21-34) 12/06/17 11:14 Sodium 143 mmol/L (132-148) 12/07/17 06:37 Potassium 4.2 mmol/L (3.6-5.2) 12/07/17 06:37 Chloride 105 mmol/L (98-107) 12/07/17 06:37 Carbon Dioxide 29 mmol/L (22-30) 12/07/17 06:37 Anion Gap 14 (10-20) 12/07/17 06:37 BUN 13 mg/dL (9-20) 12/07/17 06:37 Creatinine 0.8 mg/dL (0.8-1.5) 12/07/17 06:37 Est GFR ( Amer) > 60 12/07/17 06:37 Est GFR (Non-Af Amer) > 60 12/07/17 06:37 POC Glucose (mg/dL) 115 mg/dL (65-110) H 12/06/17 10:48 Random Glucose 102 mg/dL (75-110) 12/07/17 06:37 Hemoglobin A1c 5.5 % (4.2-6.5) 12/07/17 06:37 Calcium 9.1 mg/dl (8.6-10.4) 12/07/17 06:37 Total Bilirubin 0.9 mg/dL (0.2-1.3) 12/07/17 06:37 AST 23 U/L (17-59) 12/07/17 06:37 ALT 39 U/L (21-72) 12/07/17 06:37 Alkaline Phosphatase 49 U/L (38-126) 12/07/17 06:37 Total Creatine Kinase 484 U/L (55-170) H 12/07/17 06:37 CK-MB (Mass) 9.37 ng/mL (0.0-3.38) H 12/07/17 06:37 Troponin I < 0.0120 ng/mL (0.00-0.120) 12/06/17 20:00 Total Protein 6.2 g/dL (6.3-8.3) L 12/07/17 06:37 Albumin 3.7 g/dL (3.5-5.0) 12/07/17 06:37 Globulin 2.5 gm/dL (2.2-3.9) 12/07/17 06:37 Albumin/Globulin Ratio 1.5 (1.0-2.1) 12/07/17 06:37 Triglycerides 56 mg/dL (0-149) 12/07/17 06:37 Cholesterol 175 mg/dL (0-199) 12/07/17 06:37 LDL Cholesterol Direct 94 mg/dL (0-129) 12/07/17 06:37 HDL Cholesterol 54 mg/dL (30-70) 12/07/17 06:37 Vitamin B12 650 pg/mL (239-931) 12/06/17 20:00 Folate 16.3 ng/mL 12/06/17 20:00 Free T4 0.90 ng/dL (0.78-2.19) 12/06/17 21:04 TSH 3rd Generation 1.08 mIU/L (0.46-4.68) 12/06/17 20:00 Urine Color Colorless (YELLOW) 12/06/17 11:34 Urine Clarity Clear (Clear) 12/06/17 11:34 Urine pH 7.0 (5.0-8.0) 12/06/17 11:34 Ur Specific Superior 1.001 (1.003-1.030) L 12/06/17 11:34 Urine Protein Negative mg/dL (NEGATIVE) 12/06/17 11:34 Urine Glucose (UA) Normal mg/dL (Normal) 12/06/17 11:34 Urine Ketones Negative mg/dL (NEGATIVE) 12/06/17 11:34 Urine Blood Negative (NEGATIVE) 12/06/17 11:34 Urine Nitrate Negative (NEGATIVE) 12/06/17 11:34 Urine Bilirubin Negative (NEGATIVE) 12/06/17 11:34 Urine Urobilinogen Normal mg/dL (0.2-1.0) 12/06/17 11:34 Ur Leukocyte Esterase Neg Jasmin/uL (Negative) 12/06/17 11:34 Urine Opiates Screen Negative (NEGATIVE) 12/06/17 13:26 Urine Methadone Screen Negative (NEGATIVE) 12/06/17 13:26 Ur Barbiturates Screen Negative (NEGATIVE) 12/06/17 13:26 Ur Phencyclidine Scrn Negative (NEGATIVE) 12/06/17 13:26 Ur Amphetamines Screen Negative (NEGATIVE) 12/06/17 13:26 U Benzodiazepines Scrn Negative (NEGATIVE) 12/06/17 13:26 U Oth Cocaine Metabols Negative (NEGATIVE) 12/06/17 13:26 U Cannabinoids Screen Negative (NEGATIVE) 12/06/17 13:26 RPR Titer 1:2 (NONREACTIVE) H 12/06/17 20:00 RPR Reactive (NONREACTIVE) H 12/06/17 20:00 - Hospital Course Hospital Course: On Admission: 62 year old male with PMHx of seasonal allergies and vertigo presents to ED for L arm weakness and numbness that began 15 minutes prior to arrival while at rest. L arm weakness improved spontaneously after 15-20 minutes, however patient reports mild persistent numbness. Patient states he had a similar episode one week ago, where he awoke with the same symptoms in the middle of the night. Patient states he was not sleeping on his L side when symptoms occurred. Prior to these 2 episodes, this has never happened before. States he becomes dizzy (room spinning sensation) with these episodes, which worsens with movement. He also reports intermittent L leg weakness for the past week (feels like leg will give out on him) and bilateral leg pain for past few months. Denies current fever, chills, change in vision/hearing, slurred speech, saddle anesthesia, loss of bladder or bowel control, sore throat, shortness of breath, cough, abdominal pain, nausea, vomiting, hematemesis, diarrhea, constipation, hematochezia, dysuria, urinary frequency, back pain, and rash. 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 Hospital Course: Patient was admitted to Observation for evaluation of Left arm weakness, numbness, dizziness and leg pain. Multiple radiological studies were ordered to rule out acute intracranial process: CT head (12/06/17): no acute intracranial hemorrage. (see full report) MRI brain (12/06/17): No acute infarction. Mild chronic microangiopathic changes and mild age related flobal parenchymal volume loss. 1.3 x0.7 cm focal enhancement in the left superior cerebellar hemisphere on a single axial image with no correlating enhancement in the sagital or coronal planes is likely artifactual from arterial pulsation. However clinical correlation is recommended and if clinically indicated short-term interval follow-up may be performed to reassess this finding. (see full report) CT angio head and neck: no occlusion, stenosis, aneurysm. Carotids with mild calcified plaque. (see full report) Bilateral lower extremity US studies were obtained to rule out DVT as cause of leg pain. Venous duplex scan: no evidence of deep or superficial vein thrombosis of the bilateral extremity. Normal valve function bilaterally (See full report) Serial troponins were ordered and were negative. Dr. Mccoy, Neurology, was consulted and evaluated patient. As per Dr. Mccoy, patient 's symptoms most likely due to heavy metal intoxication and recommended out patient follow up with Dr. Santillan for EMG study. A heavy metal panel was sent out and is pending, patient will need to follow up results with PMD, Dr. Kirkland. Patient is stable for discharge. No new prescriptions provided at the time of discharge. Instructions: 1). Please schedule follow up with your Primary Care Physician Dr. Kirkland in the next 10 days for the following: Results of the blood work to check for metals in your blood Referral for Neurologist Dr. Ian Santillan whom you will need to schedule an appointment to have EMG Muscle Testing done. Dr. Santillan's office number is [phone]. 2). Please take a daily Aspirin 81 mg by mouth. 3). Please stop taking Meclizine as using it repeatedly can also cause your dizziness. 4). Stay well hydrated with water. This is a brief Summary of hospitalization. Please see EMR for full records. Discharge Exam - Head Exam Head Exam: ATRAUMATIC, NORMAL INSPECTION, NORMOCEPHALIC - Additional Findings Additional findings: Exam: General: AAOX3, NAD HEENT: NCA, EOMI, PERRLA, NO cervical/supraclavicular/submandibular lymphadenopathy, NO pharyngeal erythema/exudate, Nasal Turbinates are nonerythematous/nonedematous, Oral Mucosa is moist Cardio: NS1 and NS2, NO M/R/G Resp: CTA B/L, NO R/R/W GI: BSx4, Soft, NT, NO HSM, NO guarding/rebound tenderness Ext: Pulses are strong and equal, Capillary Refill is 2 seconds, NO edema Neuro: CN II through XII are grossly intact, 5/5 strength with flexion and extension bilateral UE and LE against resistance, 2/4 DTR, NO loss of dermatomal sensation Discharge Plan - Follow Up Plan Condition: GOOD Disposition: HOME/ ROUTINE Instructions: Vertigo (a Type of Dizziness) (DC), Paresthesias (DC), Hand Numbness Additional Instructions: Patient is stable for discharge as per Dr. Bal Loyola. No new prescriptions at this time. 1). Please schedule follow up with your Primary Care Physician Dr. Kirkland in the next 10 days for the following: Results of the blood work to check for metals in your blood Referral for Neurologist Dr. Ian Santillan whom you will need to schedule an appointment to have EMG Muscle Testing done. Dr. Santillan's office number is [phone]. 2). Please take a daily Aspirin 81 mg by mouth. 3). Please stop taking Meclizine as using it repeatedly can also cause your dizziness. 4). Stay well hydrated with water. Patient is to return to ED if symptoms recur or worsen. Referrals: Ian Santillan MD [Staff Provider] -
[2017-12-07 16:00] VITALS: BP 106/55; PULSE 55; RESP 18; TEMP 97.8; O2SAT 99
--- NOTE | 2017-12-08 12:20 | CARD ---
APPROVED REPORT Date of service: 12/06/2017 EKG Measurement Heart [id number] <Conclusion> Normal sinus rhythm Left axis deviation Abnormal ECG
== END 2017-12-07 18:13 | disposition home or self-care (01) ==
LOC: C.ER 10:20 → C.9E 12:51 → C.6T 14:10
PROVIDERS: ADMIT Family Medicine; ATTEND Family Medicine
DX: R42 Dizziness and giddiness (principal); G62.9 Polyneuropathy, unspecified; Z87.891 Personal history of nicotine dependence
CPT/HCPCS: 36415; 70450; 70496; 70498; 70552; 71045; 80053; 80061; 81001; 82175; 82550; 82553; 82607; 82746; 82948; 83036; 83655; 83825; 84439; 84443; 84484; 85025; 85610; 85730; 86592; 86780; 93306; 93970; 96374; 97116; 97162; 97165; 97530; 99285; A9579; G0378; G0480; G8978; G8979; G8987; G8988; G8989; J1644; J2060; J7030; J7040; Q9967